=== PATIENT | female | born 1950 | race Caucasian/White ===

== ENCOUNTER → 2018-04-16 | Outpatient (CLI) | payer OTHER, MEDICARE ==
[~2018-04-16] MED LIST: FLUD0.1T10 PO
--- NOTE | 2018-04-16 12:25 | DIAGNOSTIC IMAGING REPORT ---
R KNEE 1 OR 2 VIEWS ROUTINE CLINICAL HISTORY: 67 years-old Female presenting with PAIN IN RIGHT KNEE. TECHNIQUE: Frontal and lateral views of the right knee were obtained. COMPARISON: None. FINDINGS: Knee joint congruent. There may be minimal medial joint space loss. No acute fracture or malalignment. No advanced degenerative change. No radiographic soft tissue abnormality. IMPRESSION: No acute osseous injury. Electronically signed by: Krunal Alvarez M.D. 04/16/2018 12:23 PM Dictated Date/Time: 04/16/2018 12:23 PM
== END | disposition home or self-care (01) ==
LOC: C.RAD1850 12:06
PROVIDERS: ATTEND Family Medicine
DX: M25.561 Pain in right knee (principal)